=== PATIENT | female | born 1980 | race Caucasian/White ===

== ENCOUNTER → 2016-09-15 | Outpatient (CLI) | payer BC | END | disposition home or self-care (01) | LOC: C.PAPS 11:51 | PROVIDERS: ATTEND Obstetrics & Gynecology | DX: Z01.419 Encounter for gynecological examination (general) (routine) without abnormal findings (principal) ==

== ENCOUNTER → 2017-11-18 | Outpatient (CLI) | payer BC ==
[~2017-11-18] MED LIST: BCPILLS PO
== END | disposition home or self-care (01) ==
LOC: C.PAPS 13:54
PROVIDERS: ATTEND Obstetrics & Gynecology
DX: N87.1 Moderate cervical dysplasia (principal); Z01.419 Encounter for gynecological examination (general) (routine) without abnormal findings

== ENCOUNTER → 2017-11-22 | Outpatient (CLI) | payer BC | END | disposition home or self-care (01) | LOC: C.LAB1850 07:15 | PROVIDERS: ATTEND Obstetrics & Gynecology | DX: R63.5 Abnormal weight gain (principal) ==

== ENCOUNTER 2017-11-27 15:09 | Emergency (ER) | payer BC ==
[~2017-11-27] VITALS: Ht 162.6 cm; Wt 68.0 kg
[2017-11-27 15:11] VITALS: TEMP 36.8; Ht 162.6 cm; Wt 68.0 kg
[2017-11-27] MEDS ORDERED: XYLOCAINE 1%/SOD BICARB 20 ML VIAL INFIL ONE (15:30)
[2017-11-27] MEDS ORDERED: DIPHTHERIA/TETANUS/PERTUSSIS 0.5 ML SYR/VIAL IM. ONE (15:30)
[2017-11-27 15:59] VITALS: BP 132/76; PULSE 77; O2SAT 99
[2017-11-27] MEDS ORDERED: BCPILLS PO (16:00)
--- NOTE | 2017-11-27 18:42 | EMERGENCY ROOM VISIT NOTE ---
ED Visit Note First contact with patient: 15:12 CHIEF COMPLAINT: Finger laceration HISTORY OF PRESENT ILLNESS: This 37-year-old female patient presents to the emergency department after cutting the left second finger with a kitchen knife while making lunch today. The bleeding has not stopped. Denies weakness or numbness of the finger. The patient has full range of motion of the fingers. The patient rates the pain as dull and 3/10. The patient denies any other injuries. The patient's tetanus shot is not up to date. REVIEW OF SYSTEMS: A 6 system review of systems was completed with positives and pertinent negatives listed in the HPI. ALLERGIES: Sulfa MEDICATIONS: No chronic medications PMH: Otherwise healthy SOCIAL HISTORY: and lives with family PHYSICAL EXAM: Vital Signs: Reviewed Nurse's notes, vital signs stable. GENERAL : White female, in no acute distress, well developed, well nourished. SKIN: There is a 1.5 cm long laceration on the dorsal aspect of the left 2nd finger. The edges gape apart with traction. There is no foreign material in the wound and it looks clean. There is persistent bleeding. No deep structures such as tendons, bones, or significant blood vessels are seen in the base of the wound. Extension and flexion of the finger is full and strong. Full range of motion of the wrist and other fingers. Capillary refill less than 2 seconds. Normal sensation to light and sharp touch. EMERGENCY DEPARTMENT COURSE: I examined the patient. Verbal consent was obtained to perform the procedure. Using sterile technique the wound was cleansed with Betadine. 4 ml of 1% buffered lidocaine was used to perform a digital block to anesthetize the patient. The area was sterilely draped. Once the patient was anesthetized, the wound was copiously irrigated under pressure with sterile saline. The wound was explored and there were no deep structures injured. The laceration was repaired using 2 simple interrupted 5-0 nylon sutures. The patient tolerated the procedure well. Hemostasis was achieved. The area was cleaned with sterile saline and dressed with bacitracin ointment and bandage. The patient was given a tetanus booster. The patient was discharged home in good condition. Current/Historical Medications Scheduled Control Pills ( Control Pills), 1 TAB PO DAILY Allergies Uncoded Allergies: N (Allergy, Unknown, 10/18/02) SULFA (Allergy, Unknown, 2/13/03) Vital Signs Date Time Temp Pulse Resp B/P (MAP) Pulse Ox O2 Delivery O2 Flow Rate FiO2 11/27/17 15:59 77 20 132/76 99 11/27/17 15:11 36.8 69 16 132/79 99 Medications Administered Medications (Trade) Dose Ordered Sig/[place] Route Start Time Stop Time Status Last Admin Dose Admin Diphtheria/ Pertussis/Tetanus Vacc (Adacel Inj) 0.5 ml ONCE ONCE IM. 11/27/17 15:30 11/27/17 15:31 DC 11/27/17 15:23 0.5 ML Departure Information Impression Primary Impression: Laceration of finger Dispostion Home / Self-Care Condition GOOD Forms HOME CARE DOCUMENTATION FORM, IMPORTANT VISIT INFORMATION Patient Instructions [facility], ED Laceration All, ED Scar Tips to Minimize Additional Instructions Keep wound clean and dry. Do not allow any crusting or dried blood to accumulate on sutures. If this occurs, use a mild soap/water on a Q-tip to clean the wound. Do not use Peroxide to clean the wound as this can delay healing Use an antibiotic ointment like Bacitracin for 3-4 days, then let wound dry. You may bathe and shower as normal, but DO NOT SOAK the wound. Suture removal in about 8-10 days with your Family Doctor or in the ER. Return sooner for any signs of infection, increasing redness, swelling, or drainage.
== END 2017-11-27 16:01 | disposition home or self-care (01) ==
LOC: C.EDB 15:10 → C.EDD 16:01
DX: S61.211A Laceration without foreign body of left index finger without damage to nail, initial encounter (principal); W26.0XXA Contact with knife, initial encounter; Y93.G1 Activity, food preparation and clean up; Z23 Encounter for immunization; Z79.3 Long term (current) use of hormonal contraceptives

== ENCOUNTER 2017-12-07 07:21 | Emergency (ER) | payer BC ==
[~2017-12-07] VITALS: Ht 162.6 cm; Wt 68.3 kg
[2017-12-07 07:31] VITALS: Ht 162.6 cm; Wt 68.3 kg
--- NOTE | 2017-12-07 07:56 | EMERGENCY ROOM VISIT NOTE ---
History First contact with patient: 07:45 Chief Complaint: SUTURE/STAPLE REMOVAL Stated Complaint: STITCHES NEED TO BE REMOVED Nursing Triage Summary: 2 sutures in left index finger sutures placed 10 days ago here History of Present Illness The patient is a 37 year old female who presents to the Emergency Room for suture removal from a left index finger laceration that was repaired in our facility 10 days ago. Patient does report sensitivity of the region, but denies any overt numbness or other wound complications. Review of Systems Noncontributory Past Medical/Surgical History Well-documented on previous visit Social History Smoking Status: Never Smoker Current/Historical Medications Scheduled Control Pills ( Control Pills), 1 TAB PO DAILY Physical Exam Vital Signs Date Time Temp Pulse Resp B/P (MAP) Pulse Ox O2 Delivery O2 Flow Rate FiO2 12/07/17 07:31 36.7 57 18 97/51 97 Room Air Physical Exam MUSCULOSKELETAL: Examination of the left index fingertip shows a well-healed laceration without any erythema, fluctuance, diastases or drainage. 2 sutures were removed without any complications. Medical Decision & Procedures ED Course The patient was provided additional verbal wound care instructions. Medical Decision Impression Primary Impression: Encounter for removal of sutures Additional Impression: Laceration of left index finger Departure Information Referrals No Doctor, Assigned (PCP) Patient Instructions [facility] Problem Qualifiers Additional Impression: Laceration of left index finger Encounter type: subsequent encounter Damage to nail status: without damage Foreign body presence: without foreign body Qualified Codes: S61.211D - Laceration without foreign body of left index finger without damage to nail, subsequent encounter
[2017-12-07 08:09] VITALS: BP 100/57; PULSE 59; TEMP 36.7; O2SAT 99
== END 2017-12-07 08:09 | disposition home or self-care (01) ==
LOC: C.EDB 07:22
DX: S61.211D Laceration without foreign body of left index finger without damage to nail, subsequent encounter (principal); X58.XXXD Exposure to other specified factors, subsequent encounter; Z79.3 Long term (current) use of hormonal contraceptives